=== PATIENT | female | born 1965 | race Caucasian/White ===

== ENCOUNTER → 2017-05-20 16:57 | Outpatient (CLI) | payer OTHER | END | disposition home or self-care (01) | LOC: D.MAMMO 13:15 | DX: Z12.31 Encounter for screening mammogram for malignant neoplasm of breast (principal) ==

== ENCOUNTER → 2019-01-04 15:48 | Outpatient (CLI) | payer OTHER | END | disposition home or self-care (01) | LOC: D.RAD 15:48 | PROVIDERS: ATTEND Surgery | DX: R07.9 Chest pain, unspecified (principal); M54.6 Pain in thoracic spine ==

== ENCOUNTER → 2019-01-19 10:43 | Outpatient (CLI) | payer OTHER ==
--- NOTE | ~2019-01-19 | ST ---
PATIENT:ODESSA BRAVO MEDICAL RECORD: [id number] SEX: F LOCATION:[facility] ORDER #: ADMISSION DATE: 01/19/19 AGE OF PATIENT: 53 REFERRING PHYSICIAN: INTERPRETING PHYSICIAN: CAROL HAWLEY MD DATE OF SERVICE: 01/19/2019 PROCEDURE: Nuclear stress test. INDICATIONS: Chest pain, abnormal ECG, shortness of breath. She was exercised on standard Rene protocol for 6 minutes achieving greater than 85% of max target heart rate response with 32 mCi of sestamibi injected at peak stress, 10 mCi used previously for rest images. FINDINGS: Gated SPECT reveals preserved ejection fraction at 70% with good wall motion and thickening and brightening throughout all segments. SPECT imaging Cardiolite was used as myocardial fusion agent. There is homogeneous uptake throughout all segments at rest and stress with no evidence of inducible ischemia or previous infarction. OVERALL IMPRESSION: 1. This is a normal nuclear stress test with no evidence of inducible ischemia or previous infarction. 2. Gated SPECT reveals a preserved ejection fraction at 70%. In this patient with ongoing symptomatology, the current scan does not suggest the presence of hemodynamically significant coronary artery disease. Evaluate noncardiac etiology of chest pain. TRANSINT:[id number] Voice Confirmation ID: [id number] DOCUMENT ID: [id number] CAROL HAWLEY MD CC: ANDRES BETANCOURT MD [id number] DICTATION DATE: 01/19/19 1609 SUPERVISOR FEED HOUSE: 01/20/19 1010 DEP CLI 01/19/19 [facility] [address] [place] [address]
--- NOTE | 2019-01-25 13:26 | EC ---
PATIENT:ODESSA BRAVO DATE OF SERVICE: 01/19/19 SEX: F MEDICAL RECORD: [id number] DATE OF : 67 LOCATION:[facility] AGE OF PATIENT: 53 ADMISSION DATE: 01/19/19 REFERRING PHYSICIAN: INTERPRETING PHYSICIAN: GENO DUMONT MD ECHOCARDIOGRAM REPORT ECHO CHARGES 4 ECHO COMPLETE Date: 01/19/19 CLINICAL DIAGNOSIS: DYSPNEA ECHOCARDIOGRAPHIC MEASUREMENTS (adult normal given) AC root (d.<3.7cm) 3.5 cm LV Septum d (<1.2 cm> 1.3 cm Valve Excursion 1.5 cm LV Septum (systole) 1.4 cm Left Atria (s.<4.0cm> 3.6 cm LVPW d(<1.2cm) 1.4 cm RV (d.<2.3cm) 3.1 cm LVPW (sytole) 1.5 cm LV diastole(<5.6CM) 3.7 cm MV E-F(>70mm/sec) cm LV systole 2.8 cm LVOT Diameter 1.9 cm MV exc.(>10mm) 1.4 cm Est.ejection fraction (50-75%) % DOPPLER: LVIT cm/sec A 67.0 cm/sec E 84.0 cm/sec LA cm/sec RVSP 25 mmHg LVOT 108 cm/sec AOP1/2T m/s Asc. Ao 124 cm/sec RVOT 74 cm/sec RA cm/sec PA 116 cm/sec AV Gradient Peak 6.14 mmHg AV Mean 3.14 mmHg AV Area 2.2 cm MV Gradient Peak 3.73 mmHg MV Mean 1.37 mmHg MV Area cm COMMENTS: Briquetting Machine Operator: 2 ELSY CABALLERO Line Servicer: 3 Dr. Chambers TAPE# PACS Pericardial Effusion N DATE OF SERVICE: Adequate 2D echo, color flow imaging, spectral Doppler, and M-Mode Borderline LVH. LV internal dimension is normal. Wall motion is normal. EF is greater than or equal to 55%. Aortic valve is tricuspid. No evidence of stenosis by Doppler interrogation. Left atrium is normal. Mitral valve shows no prolapse. Trace MR. Right-sided chambers are grossly normal. Trace TR. TRANSINT:[id number] Voice Confirmation ID: [id number] DOCUMENT ID: [id number] ECHOCARDIOGRAM REPORT [id number] ODESSA BRAVO GENO DUMONT MD at 1326 CC: [id number] DICTATION DATE: 01/20/19 1310 DIRECTOR CRITICAL CARE: 01/20/19 1441 DEP CLI 01/19/19 [facility] [id number] [place] [address]
== END | disposition home or self-care (01) ==
LOC: D.HCCARDIO 10:30
PROVIDERS: ATTEND Internal Medicine Interventional Cardiology
DX: R06.02 Shortness of breath (principal)

== ENCOUNTER 2019-06-06 08:00 | Outpatient (CLI) | payer OTHER | END 2019-06-06 23:59 | disposition home or self-care (01) | LOC: D.MAMMO 08:00 | PROVIDERS: ATTEND Obstetrics & Gynecology | DX: Z12.31 Encounter for screening mammogram for malignant neoplasm of breast (principal) ==

== ENCOUNTER → 2021-02-11 12:57 | Outpatient (CLI) | payer BC | END | disposition home or self-care (01) | LOC: D.LABREF 12:57 | PROVIDERS: ATTEND Surgery | DX: L03.012 Cellulitis of left finger (principal) ==

== ENCOUNTER → 2021-02-11 20:17 | Outpatient (CLI) | payer BC | END | disposition home or self-care (01) | LOC: D.LABREF 20:17 | PROVIDERS: ATTEND Surgery | DX: L03.012 Cellulitis of left finger (principal) ==